=== PATIENT | female | born 1975 | race Caucasian/White ===

== ENCOUNTER 2017-03-28 13:37 | Emergency (ER) | payer BC ==
--- NOTE | 2017-03-28 14:12 | EDM.PDOC ---
ED HPI GENERAL MEDICAL PROBLEM - General Chief Complaint: Upper Extremity Injury/Pain Stated Complaint: [id number] SURGERY ON HAND INJURED IT FELL @ WORK Time Seen by Provider: 03/28/17 14:06 Source of Information: Reports: Patient History Limitations: Reports: No Limitations - History of Present Illness INITIAL COMMENTS - FREE TEXT/NARRATIVE: 41 yo White female s/p right hand surgery March 06, 2017 w/ pinning (2) c/o pain and swelling to recent surgical area. Pt. reports that 2 days ago she jammed fingers and then last PM broke fall using hand. Onset Date: 03/26/17 Onset Time: 12:00 Duration: Day(s): Location: Reports: Upper Extremity, Right Quality: Reports: Ache Severity: Moderate Improves with: Reports: None Worsens with: Reports: Movement Context: Reports: Trauma (Jammed and then fell onto hand) Associated Symptoms: Reports: No Other Symptoms Right Hand Pain Score (Numeric/FACES): 8 - Related Data Allergies Allergy/AdvReac Type Severity Reaction Status Date / Time codeine Allergy Rash Verified 03/28/17 13:58 Home Meds: Home Meds Cetirizine HCl [Zyrtec] 10 mg PO DAILY 03/28/17 [History] Past Medical History - Past Health History Medical/Surgical History: Denies Medical/Surgical History - Past Surgical History GI Surgical History: Reports: Appendectomy Musculoskeletal Surgical History: Reports: Other (See Below) Other Musculoskeletal Surgeries/Procedures:: right hand surgery Social & Family History - Family History Family Medical History: Noncontributory - Tobacco Use Smoking Status *Q: Current Every Day Smoker Years of Tobacco use: 20 Packs/Tins Daily: 0.5 - Caffeine Use Caffeine Use: Reports: Coffee - Recreational Drug Use Recreational Drug Use: No Review of Systems - Review of Systems Review Of Systems: See Below Constitutional: Reports: No Symptoms Eyes: Reports: No Symptoms Ears: Reports: No Symptoms Nose: Reports: No Symptoms Mouth/Throat: Reports: No Symptoms Respiratory: Reports: No Symptoms Cardiovascular: Reports: No Symptoms GI/Abdominal: Reports: No Symptoms Genitourinary: Reports: No Symptoms Musculoskeletal: Reports: Hand Pain Skin: Reports: Erythema Neurological: Reports: No Symptoms Psychiatric: Reports: No Symptoms ED EXAM, GENERAL - Physical Exam Exam: See Below Exam Limited By: No Limitations General Appearance: Alert, WD/WN, No Apparent Distress Eye Exam: Bilateral Eye: EOMI, PERRL Ears: Normal External Exam Nose: Normal Inspection Throat/Mouth: Normal Inspection Head: Atraumatic Neck: Normal Inspection Respiratory/Chest: No Respiratory Distress, Lungs Clear Cardiovascular: Normal Peripheral Pulses, Regular Rate, Rhythm GI/Abdominal: Normal Bowel Sounds Back Exam: Normal Inspection Extremities: Other (right hand with pins in-place in area of 4th and 5th fingers w/ some swelling and no discoloration) Neurological: Alert, Oriented, CN II-XII Intact Psychiatric: Normal Affect Skin Exam: Erythema (min swelling) Lymphatic: No Adenopathy Course - Vital Signs Last Recorded V/S: Last Vital Signs Temp 36.2 C 03/28/17 14:20 Pulse 70 03/28/17 14:20 Resp 18 03/28/17 14:20 BP 134/87 03/28/17 14:20 Pulse Ox 99 03/28/17 14:20 - Orders/Labs/Meds Orders: Active Orders 24 hr Category Date Time Status Hand 2V Rt [CR] Urgent Exams 03/28/17 14:06 Taken Departure - Departure Time of Disposition: 14:35 Disposition: Home, Self-Care 01 Condition: Good Clinical Impression: Contusion of hand Qualifiers: Encounter type: initial encounter Laterality: right Qualified Code(s): S60.221A - Contusion of right hand, initial encounter - Discharge Information Forms: ED Department Discharge Additional Instructions: Rest Elevate and apply ice pack to area TID X 15mins. F/U w/ Orthopedics - My Orders Last 24 Hours: My Active Orders 03/28/17 14:06 Hand 2V Rt [CR] Urgent - Assessment/Plan Last 24 Hours: My Active Orders 03/28/17 14:06 Hand 2V Rt [CR] Urgent
[2017-03-28 14:21] VITALS: BP 134/87
== END 2017-03-28 14:39 | disposition home or self-care (01) ==
LOC: DL.ED 13:37
DX: S60.221A Contusion of right hand, initial encounter (principal); F17.210 Nicotine dependence, cigarettes, uncomplicated; Z90.49 Acquired absence of other specified parts of digestive tract; Z98.890 Other specified postprocedural states; Z79.899 Other long term (current) drug therapy; Z88.5 Allergy status to narcotic agent; W19.XXXA Unspecified fall, initial encounter
CPT/HCPCS: 73120-RT; 99283